=== PATIENT | female | born 1970 | race Caucasian/White ===

== ENCOUNTER 2016-09-20 07:58 | Day surgery (SDC) | payer BC ==
[~2016-09-20] VITALS: Ht 170.2 cm; Wt 121.0 kg
[~2016-09-20 07:58] MED LIST: ANAPROX DS550 M1 PO; ANUSOL HC,ANUCO25 MG PR; BACTRIM,SEPT1 TABLE1 PO; BIOTIN1 MG PO; CLARITIN10 M3 PO; DAILY VALUE1 EACH PO; FLONASE16 G1 BOTH NARES; GLUCOPHAGE500 MG PO; LIPITOR10 MG PO; LIPITOR20 MG PO; MAXZIDE 37.5 M1 EACH PO; MOTRIN800 MG PO; NORCO 5/3251 TABLET PO; PROAIR HFA8.5 GM IH; PROTONIX40 MG PO; SINGULAIR10 MG PO; SYNTHROID25 MCG PO; TOPROL XL50 MG PO; TYLENOL EXTRA500 MG PO; VOLTAREN 1% GE100 GM TP; XANAX0.5 MG PO; XANAX1 MG PO; ZITHROMAX TRI-500 MG PO; ZOLOFT100 MG PO; [UNRECOGNIZED DRUG - OTHER] TP
[2016-09-20 08:27] VITALS: BP 139/78
[2016-09-20 08:47] LABS: POINT-OF-CARE METER ID UU14174212
[2016-09-20] MEDS ORDERED: IBUPROFEN800 MG PO (11:03)
[2016-09-20 11:40] LABS: POINT-OF-CARE METER ID UU13113675
[2016-09-20 12:34] VITALS: BP 154/77
[2016-09-20 13:30] VITALS: BP 148/79
[2016-09-20 14:49] VITALS: BP 157/85
== END 2016-09-20 15:08 | disposition home or self-care (01) ==
LOC: SDC 07:58
PROVIDERS: Obstetrics & Gynecology
DX: N94.6 Dysmenorrhea, unspecified (principal); N92.0 Excessive and frequent menstruation with regular cycle; N80.0 Endometriosis of uterus; D25.1 Intramural leiomyoma of uterus; E11.9 Type 2 diabetes mellitus without complications; I10 Essential (primary) hypertension; E66.9 Obesity, unspecified; Z68.41 Body mass index [BMI] 40.0-44.9, adult
CPT/HCPCS: 82948; 88307; J0131; J0330; J0690; J1100; J1885; J2405; J3010

== ENCOUNTER 2017-05-01 12:14 | Emergency (ER) | payer BC ==
[~2017-05-01] VITALS: Ht 167.6 cm; Wt 124.0 kg
[~2017-05-01 12:14] MED LIST changes: +IBUPROFEN800 MG PO
[2017-05-01] MEDS ORDERED: LIDODERM 5% P1 PATCH TD (13:48)
[2017-05-01] MEDS ORDERED: FLEXERIL10 MG PO (13:48)
[2017-05-01 14:14] VITALS: BP 157/90
== END 2017-05-01 14:15 | disposition home or self-care (01) ==
LOC: EME 12:14
DX: M25.511 Pain in right shoulder (principal); M62.838 Other muscle spasm; K21.9 Gastro-esophageal reflux disease without esophagitis; E11.9 Type 2 diabetes mellitus without complications; Z79.84 Long term (current) use of oral hypoglycemic drugs; E03.9 Hypothyroidism, unspecified
CPT/HCPCS: 99281; 99283